=== PATIENT | female | born 1975 | race Caucasian/White ===

== ENCOUNTER 2016-07-21 15:53 | Emergency (ER) | payer SELFPAY ==
--- NOTE | 2016-07-21 15:55 | NUR ---
PATIENT LEFT WITHOUT BEING SEEN BY DR. HARMAN. NO FURTHER CARE PROVIDED FOR PATIENT.
== END 2016-07-21 15:55 | disposition left against medical advice (07) ==
LOC: MED 15:53
DX: N93.9 Abnormal uterine and vaginal bleeding, unspecified (principal); Z53.21 Procedure and treatment not carried out due to patient leaving prior to being seen by health care provider